=== PATIENT | female | born 1945 | race Two or more races ===

== ENCOUNTER 2025-07-22 09:31 | Emergency (ER) | payer OTHER, BC ==
[~2025-07-22] VITALS: Ht 157.5 cm; Wt 68.5 kg
[2025-07-22] MEDS ORDERED: LIPITOR40 M1 PO (09:52)
[2025-07-22] MEDS ORDERED: COZAAR50 MG PO (09:52)
[2025-07-22] MEDS ORDERED: MOUNJARO5 MG/0.5 M SQ (09:53)
[2025-07-22] MEDS ORDERED: METHYLPREDNISOLONE SOD SUCC 40 MG VIAL IV ONE (10:15)
[2025-07-22] MEDS ORDERED: DIPHENHYDRAMINE HCL 50 MG/ML VIAL 1ML IV ONE (10:15)
[2025-07-22] MEDS ORDERED: DIPHENHYDRAMINE HCL 50 MG/ML VIAL 1ML ONE (10:22)
[2025-07-22] MEDS ORDERED: METHYLPREDNISOLONE SOD SUCC 40 MG VIAL ONE (10:22)
== END 2025-07-22 12:32 | disposition home or self-care (01) ==
LOC: ER 09:32
DX: R21 Rash and other nonspecific skin eruption (principal); Z88.8 Allergy status to other drugs, medicaments and biological substances; I10 Essential (primary) hypertension; E11.9 Type 2 diabetes mellitus without complications; Z79.4 Long term (current) use of insulin
CPT/HCPCS: 96365; 99282; J1200; J3490